=== PATIENT | male | born 1995 | race Caucasian/White ===

== ENCOUNTER 2019-01-29 10:53 | Emergency (ER) | payer OTHER, SELFPAY ==
[2019-01-29 11:01] VITALS: BP 139/79; PULSE 85; RESP 18; TEMP 36.2; O2SAT 98
--- NOTE | 2019-01-29 11:24 | ED.GENADUL_ITS ---
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 He has a 1cm superficial laceration to the left hand between the thumb and index finger. He has full rom of the fingers and normal sensation. I recommended that he have sutures but he declined due to needle phobia and I placed dermabond to close it. I gave recs to return for signs of infection and last tetanus vaccine was in 2008 so will up date it here Differential Diagnosis laceration, abrasion HPI General Mode of arrival: ambulatory . Date/Time Provider Initiated Documentation: 01/29/19 11:01 . Limitations to Documentation: no limitations . Information obtained by: patient . History of Present Illness 23 year old M presents to the emergency department with the chief complaint of left hand laceration, described as moderate, Quality is described as aching, No relieving factors improve symptom(s), No exacerbating factors reported . Patient did receive the following treatments prior to arrival, none Related Data Allergies Allergy/AdvReac Type Severity Reaction Status Date / Time Penicillins Allergy Unverified 01/29/19 11:04 General Stated Complaint: Laceration TERRENCE: 4 Review of Systems Review of Systems All systems reviewed & are unremarkable except as noted in HPI and below Constitutional Denies weakness Cardiovascular Denies chest pain and Denies dyspnea Respiratory Denies dyspnea Gastrointestinal Denies abdominal pain, Denies nausea and Denies vomiting Integumentary/Breasts Denies rash Neurologic Denies weakness PFSH Social History Smoking/Tobacco Use Status: Never Alcohol Intake: current Alcohol Intake frequency: 0-2 drinks per day Alcohol type: beer Drug use: Daily Substance use type: marijuana Do you feel safe at home: Yes Exam Const General: no acute distress Orientation: alert HENMT Head: normal to inspection Ears: external ears normal General nose exam: external nose normal Mouth: moist mucous membranes Eyes General: appearance normal, both eyes and all related structures Neck Neck: normal visual inspection Resp Effort & Inspection: normal respiratory effort and able to speak in complete sentences Cardio Rate: regular rate Skin General skin exam: no rashes or lesions noted Neuro General: alert and oriented x3 Extrem General: full ROM and normal capillary refill Psych Mental Status: mental status grossly normal Course Vital Signs Temperature 36.2 C L 01/29/19 11:01 Pulse 85 01/29/19 11:01 Respiratory Rate 18 01/29/19 11:01 Blood Pressure 139/79 01/29/19 11:01 Pulse Oximetry 98 01/29/19 11:01 Temperature 36.2 C L 01/29/19 11:01 Temperature Source Skin 01/29/19 11:01 Pulse 85 01/29/19 11:01 Respiratory Rate 18 01/29/19 11:01 Blood Pressure 139/79 01/29/19 11:01 Blood Pressure Position Sitting 01/29/19 11:01 Pulse Oximetry 98 01/29/19 11:01 Oxygen Delivery Method Room Air 01/29/19 11:01 Oxygen Flow Rate 0 01/29/19 11:01 Pain Level 2 01/29/19 11:01
== END 2019-01-29 11:55 | disposition home or self-care (01) ==
PROVIDERS: Emergency Provider Emergency Medicine
DX: S61.412A Laceration without foreign body of left hand, initial encounter (principal); W24.1XXA Contact with transmission devices, not elsewhere classified, initial encounter
CPT/HCPCS: 12001; 90471